=== PATIENT | female | born 1980 | race African-American/Black ===

== ENCOUNTER 2017-12-29 20:00 | Emergency (ER) | payer SELFPAY ==
--- NOTE | 2017-12-29 20:50 | RAD REPORT ---
EXAM DESCRIPTION: CT - Head Brain Wo Cont - 12/29/2017 8:35 pm CLINICAL HISTORY: Headache COMPARISON: None. TECHNIQUE: Axial 5 mm thick images of the head were obtained without IV contrast. All CT scans are performed using dose optimization technique as appropriate and may include automated exposure control or mA/KV adjustment according to patient size. FINDINGS: No intracranial hemorrhage, mass, edema or shift of mid-line structures. No acute infarcti on changes seen. No abnormal extra-axial fluid collections. Ventricles are normal. Mastoid air cells and visualized portions of the paranasal sinuses are clear. No acute bony findings. IMPRESSION: Negative non-contrast CT head examination.
[2017-12-29 21:02] LABS: Absolute Lymphocytes (CBC) 1.9 K/uL (0.7-4.9); Absolute Monocytes 0.5 K/uL (0.1-1.3); Absolute Neutrophil 2.7 K/uL (1.8-8.0); Basophils % 1.5 % (0-1.3); Eosinophils % 1.2 % (0-4.4); Hematocrit 30.7 % (36.0-45.0); MCH 22.5 pg (27.0-35.0); MCV 72.5 fL (80-100); MPV 7.7 fL (7.6-11.3); Monocytes % 9.9 % (3.3-12.3); RBC Red Blood Cell Count 4.24 M/uL (3.86-4.86)
[2017-12-29] MEDS ORDERED: METOCLOPRAMIDE 10 MG/2mL INJ ONE (21:02)
[2017-12-29] MEDS ORDERED: NA CHLORIDE 0.9% 1,000 ML ONE (21:03)
[2017-12-29] MEDS ORDERED: KETOROLAC 30 MG/ML INJ ONE (21:03)
[2017-12-29] MEDS ORDERED: DIPHENHYDRAMINE 50 MG/ML VIAL ONE (21:03)
[2017-12-29 21:13] LABS: ALT/SGPT 15 U/L (12-78); AST/SGOT 15 U/L (15-37); Albumin 3.7 g/dL (3.4-5.0); Alkaline Phosphatase 59 U/L (45-117); BUN Blood Urea Nitrogen 11 mg/dL (7-18); Bicarbonate 26 mmol/L (21-32); Bilirubin Total 0.3 mg/dL (0.2-1.0); Glucose Level 100 mg/dL (74-106); Potassium 3.7 mmol/L (3.5-5.1); Sodium Level 142 mmol/L (136-145); Troponin I < 0.02 ng/mL (0.0-0.045)
[2017-12-29 21:31] LABS: Urine Blood NEGATIVE (NEG); Urine Glucose NEGATIVE (NEG); Urine Protein NEGATIVE (NEG); Urine Specific Gravity 1.015 (1.005-1.030)
--- NOTE | 2017-12-29 21:51 | RAD REPORT ---
EXAM DESCRIPTION: RAD - Chest Single View - 12/29/2017 9:00 pm CLINICAL HISTORY: Chest pain COMPARISON: October 2011 TECHNIQUE: AP portable chest image was obtained 1 hours . FINDINGS: Lungs are clear. Heart and vasculature are normal. No measurable pleural effusion and no p neumothorax. No acute bony abnormality seen. No acute aortic findings suspected. IMPRESSION: No acute cardiopulmonary process. No significant interval change.
--- NOTE | 2017-12-29 22:10 | ER ---
Nurse's Notes [facility] Name: Varinder Douglas Age: 37 yrs Sex: Female : 1980 Arrival Date: 12/29/2017 Time: 20:01 Bed 30 Private MD: Diagnosis: Migraine without aura Presentation: 12/29 20:13 Presenting complaint: Patient states: "I STARTED HAVING HEADACHE AND CHEST PAIN AT rv ABOUT 4PM.". Transition of care: patient was not received from another setting of care. Onset of symptoms was December 29, 2017 at 16:00. Risk Assessment: Do you want to hurt yourself or someone else? Patient reports no desire to harm self or others. Initial Sepsis Screen: Does the patient meet any 2 criteria? No. Patient's initial sepsis screen is negative. Does the patient have a suspected source of infection? No. Patient's initial sepsis screen is negative. Care prior to arrival: None. 20:13 Method Of Arrival: Ambulatory rv 20:13 Acuity: AMAURY 3 rv Triage Assessment: 20:16 General: Appears in no apparent distress. uncomfortable, Behavior is calm, cooperative. rv Pain: Complains of pain in HEAD, CHEST. Cardiovascular: Capillary refill < 3 seconds. 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 - Social history:: Smoking status: Patient/guardian denies using tobacco, never smoked, Patient uses Patient/guardian denies using alcohol, street drugs, The patient lives with family. - Ebola Screening: : Patient negative for fever greater than or equal to 101.5 degrees Fahrenheit, and additional compatible Ebola Virus Disease symptoms Patient denies exposure to infectious person Patient denies travel to an Ebola-affected area in the 21 days before illness onset. - Family history:: not pertinent. Screenin:19 Abuse screen: Denies threats or abuse. Denies injuries from another. Nutritional rv screening: No deficits noted. Tuberculosis screening: No symptoms or risk factors identified. Fall Risk None identified. Assessment: 20:18 General: Appears in no apparent distress. uncomfortable, Behavior is calm, cooperative. rv Pain: Pain does not radiate. Pain began 4 hours ago. Neuro: Level of Consciousness is awake, alert, obeys commands, Oriented to person, place, time, situation. Cardiovascular: Capillary refill < 3 seconds. Respiratory: Airway is patent. GI: No signs and/or symptoms were reported involving the gastrointestinal system. : No signs and/or symptoms were reported regarding the genitourinary system. EENT: No signs and/or symptoms were reported regarding the EENT system. Derm: Skin is intact. Musculoskeletal: No signs and/or symptoms reported regarding the musculoskeletal system. 21:24 Reassessment: Patient appears in no apparent distress at this time. rv Vital Signs: 20:17 BP 139 / 91; Pulse 93; Resp 17; Temp 97.9; Pulse Ox 100% ; Weight 92.99 kg (R); rv 21:24 BP 140 / 97; Pulse 79; Resp 18; Pulse Ox 100% on R/A; rv 22:35 BP 128 / 80; Pulse 87; Resp 17; Pulse Ox 100% on R/A; rv ED Course: 20:01 Patient arrived in ED. am2 20:07 Peña Santoyo MD is Attending Physician. ma2 20:15 Triage completed. rv 20:19 Arm band placed on right wrist. rv 20:19 Patient has correct armband on for positive identification. Bed in low position. Call rv light in reach. Side rails up X 1. Adult w/ patient. Pulse ox on. NIBP on. 20:20 Patient maintains SpO2 saturation greater than 95% on room air. rv 20:35 CT Head Brain wo Cont In Process Unspecified. EDMS 20:45 Inserted saline lock: 20 gauge in right antecubital area, using aseptic technique. rv Blood collected. 20:45 Initial lab(s) drawn, by me, sent to lab. rv 20:59 X-ray completed. Portable x-ray completed in exam room. Patient tolerated procedure kp1 well. 21:01 Chest Single View XRAY In Process Unspecified. EDMS 22:35 No provider procedures requiring assistance completed. IV discontinued, bleeding rv controlled, No redness/swelling at site. Pressure dressing applied. Administered Medications: 21:00 Drug: NS 0.9% 1000 ml Route: IV; Rate: 1 bolus; Site: right antecubital; rv 22:34 Follow up: IV Status: Completed infusion rv 21:00 Drug: Reglan 10 mg Route: IVP; Site: right antecubital; rv 22:34 Follow up: Response: Pain is decreased rv 21:00 Drug: Benadryl 50 mg Route: IVP; Site: right antecubital; rv 22:34 Follow up: Response: Pain is decreased rv 21:00 Drug: TORadol 30 mg Route: IVP; Site: right antecubital; rv 22:34 Follow up: Response: No adverse reaction; Pain is decreased rv Outcome: 22:09 Discharge ordered by MD. knight 22:35 Discharged to home ambulatory. rv 22:35 Condition: improved 22:35 Discharge instructions given to patient, Instructed on discharge instructions, follow up and referral plans. medication usage, Demonstrated understanding of instructions, follow-up care, medications, Prescriptions given X 1. 22:35 Patient left the ED. rv Signatures: Dispatcher [employer] EDMS Kia Rodriguez am2 Yas Correa kp1 Peña Santoyo MD MD ma2 Vicente, Ronaldo RN RN rv
--- NOTE | 2017-12-29 22:10 | EDPHYS ---
Physician Documentation [facility] Name: Varinder Douglas Age: 37 yrs Sex: Female : 1980 Arrival Date: 12/29/2017 Time: 20:01 Bed 30 Private MD: ED Physician Peña Santoyo HPI: 12/29 20:59 This 37 yrs old Black Female presents to ER via Ambulatory with complaints of Chest ma2 Pain, Headache. 20:59 The patient or guardian reports chest pain that is located primarily in the epigastric ma2 area. The pain does not radiate. Associated signs and symptoms: Pertinent positives: HEADACHE GRADUAL UNCHANGED . The chest pain is described as burning. Duration: The patient or guardian reports a single episode. Severity of pain: At its worst the pain was mild in the emergency department the pain is unchanged. The patient has experienced similar episodes in the past. 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 - Social history:: Smoking status: Patient/guardian denies using tobacco, never smoked, Patient uses Patient/guardian denies using alcohol, street drugs, The patient lives with family. - Ebola Screening: : Patient negative for fever greater than or equal to 101.5 degrees Fahrenheit, and additional compatible Ebola Virus Disease symptoms Patient denies exposure to infectious person Patient denies travel to an Ebola-affected area in the 21 days before illness onset. - Family history:: not pertinent. ROS: 20:59 Constitutional: Negative for fever, chills, and weight loss, Cardiovascular: Negative ma2 for chest pain, palpitations, and edema, Respiratory: Negative for shortness of breath, cough, wheezing, and pleuritic chest pain, Abdomen/GI: Negative for abdominal pain, nausea, diarrhea, and constipation, MS/Extremity: Negative for injury and deformity, Skin: Negative for injury, rash, and discoloration. 20:59 Neuro: Positive for headache, Negative for altered mental status, dizziness, seizure activity, speech changes, tremor, visual changes. 20:59 All other systems are negative. Exam: 20:59 Constitutional: This is a well developed, well nourished patient who is awake, alert, ma2 and in no acute distress. Chest/axilla: Normal chest wall appearance and motion. Nontender with no deformity. No lesions are appreciated. Cardiovascular: Regular rate and rhythm with a normal S1 and S2. No gallops, murmurs, or rubs. Normal PMI, no JVD. No pulse deficits. Respiratory: Lungs have equal breath sounds bilaterally, clear to auscultation and percussion. No rales, rhonchi or wheezes noted. No increased work of breathing, no retractions or nasal flaring. Abdomen/GI: Soft, non-tender, with normal bowel sounds. No distension or tympany. No guarding or rebound. No evidence of tenderness throughout. MS/ Extremity: Pulses equal, no cyanosis. Neurovascular intact. Full, normal range of motion. Neuro: Awake and alert, GCS 15, oriented to person, place, time, and situation. Cranial nerves II-XII grossly intact. Motor strength 5/5 in all extremities. Sensory grossly intact. Cerebellar exam normal. Normal gait. Psych: Awake, alert, with orientation to person, place and time. Behavior, mood, and affect are within normal limits. Vital Signs: 20:17 BP 139 / 91; Pulse 93; Resp 17; Temp 97.9; Pulse Ox 100% ; Weight 92.99 kg (R); rv 21:24 BP 140 / 97; Pulse 79; Resp 18; Pulse Ox 100% on R/A; rv 22:35 BP 128 / 80; Pulse 87; Resp 17; Pulse Ox 100% on R/A; rv MDM: 20:07 Patient medically screened. ma2 20:59 Differential diagnosis: chest wall pain, costochondritis, HEADACHE MIGRAINE VS TENSION. ma2 HEART Score: History:. The patient's pulmonary embolism risk score was calculated as follows: Total Score: 0-2 points. This patient was found to be at low risk for a pulmonary embolism by using the Well's assessment criteria. NICKI Risk Score: TOTAL SCORE = 0. 21:59 Data reviewed: vital signs, nurses notes, EMS record. Counseling: I had a detailed [facility] discussion with the patient and/or guardian regarding: the historical points, exam findings, and any diagnostic results supporting the discharge/admit diagnosis, the presence of at least one elevated blood pressure reading (>120/80) during this emergency department visit, the need for outpatient follow up. Response to treatment: the patient's symptoms have markedly improved after treatment. 12/29 20:24 Order name: CBC with Diff; Complete Time: 21:14 ma2 12/29 20:24 Order name: CMP; Complete Time: 21:14 ma2 12/29 20:24 Order name: CT Head Brain wo Cont; Complete Time: 21:14 ma2 12/29 20:24 Order name: Troponin I; Complete Time: 21:14 ma2 12/29 20:24 Order name: Test, Serum; Complete Time: 21:56 ma2 12/29 21:26 Order name: Urine Dipstick--Ancillary (enter results); Complete Time: 21:56 ar5 12/29 20:24 Order name: Chest Single View XRAY; Complete Time: 21:56 ma2 12/29 20:24 Order name: Urine Dipstick-Ancillary (obtain specimen); Complete Time: 21:23 ma2 Administered Medications: 21:00 Drug: NS 0.9% 1000 ml Route: IV; Rate: 1 bolus; Site: right antecubital; rv 22:34 Follow up: IV Status: Completed infusion rv 21:00 Drug: Reglan 10 mg Route: IVP; Site: right antecubital; rv 22:34 Follow up: Response: Pain is decreased rv 21:00 Drug: Benadryl 50 mg Route: IVP; Site: right antecubital; rv 22:34 Follow up: Response: Pain is decreased rv 21:00 Drug: TORadol 30 mg Route: IVP; Site: right antecubital; rv 22:34 Follow up: Response: No adverse reaction; Pain is decreased rv Disposition: 12/29/17 22:09 Discharged to Home. Impression: Migraine without aura. - Condition is Stable. - Discharge Instructions: Migraine Headache. - Prescriptions for Reglan 10 mg Oral Tablet - take 1 tablet by ORAL route every 6 hours take 30 minutes before meals and at bedtime; 20 tablet. - Medication Reconciliation Form, Thank You Letter, Antibiotic Education, Prescription Opioid Use form. - Follow up: Private Physician; When: Tomorrow; Reason: Continuance of care. Signatures: Dispatcher [employer] EDPeña Mar MD MD ma2 Boyd Maldonado, RN RN rv Corrections: (The following items were deleted from the chart) 22:35 22:09 12/29/2017 22:09 Discharged to Home. Impression: Migraine without aura. Condition rv is Stable. Forms are Medication Reconciliation Form, Thank You Letter, Antibiotic Education, Prescription Opioid Use. Follow up: Private Physician; When: Tomorrow; Reason: Continuance of care. ma2
[2017-12-29 22:44] VITALS: TEMP 97.9; O2SAT 100
[2017-12-29 22:46] VITALS: BP 128/80
== END 2017-12-29 22:35 | disposition home or self-care (01) ==
LOC: ER 20:00
DX: G43.009 Migraine without aura, not intractable, without status migrainosus (principal)
CPT/HCPCS: 36415; 70450; 71045; 80053; 81003; 84484; 84703; 85025; 96361; 96374; 96375; 99284; J2765; J7030

== ENCOUNTER 2018-07-19 14:45 | Emergency (ER) | payer SELFPAY ==
[2018-07-19 15:38] LABS: Urine Blood 2+ (NEG); Urine Glucose NEGATIVE (NEG); Urine Protein NEGATIVE (NEG); Urine Specific Gravity <1.005 (1.005-1.030)
[2018-07-19] MEDS ORDERED: PROMETHAZINE 25 MG TABLET ONE (15:48)
[2018-07-19] MEDS ORDERED: NA CHLORIDE 0.9% 1,000 ML ONE (15:48)
[2018-07-19 16:03] LABS: Urine Bacteria <20 /HPF (<20); Urine Culture Reflex Order NOT NEEDED; Urine RBC NONE SEEN /HPF (NONE SEEN)
[2018-07-19 16:08] LABS: Absolute Lymphocytes (CBC) 1.3 K/uL (0.7-4.9); Absolute Monocytes 0.5 K/uL (0.1-1.3); Absolute Neutrophil 2.8 K/uL (1.8-8.0); Basophils % 1.1 % (0-1.3); Hematocrit 29.5 % (36.0-45.0); Lymphocytes % 27.9 % (15.3-44.8); MPV 7.9 fL (7.6-11.3); Monocytes % 9.7 % (3.3-12.3); RBC Red Blood Cell Count 4.14 M/uL (3.86-4.86)
[2018-07-19 16:14] LABS: ALT/SGPT 14 U/L (12-78); AST/SGOT 12 U/L (15-37); Albumin 3.8 g/dL (3.4-5.0); Alkaline Phosphatase 52 U/L (45-117); BUN Blood Urea Nitrogen 12 mg/dL (7-18); Bicarbonate 25 mmol/L (21-32); Bilirubin Direct < 0.1 mg/dL (0-0.2); Bilirubin Total 0.5 mg/dL (0.2-1.0); Glucose Level 85 mg/dL (74-106); Lipase 104 U/L (73-393); Potassium 3.6 mmol/L (3.5-5.1); Protein, Total 8.3 g/dL (6.4-8.2); Sodium Level 141 mmol/L (136-145)
[2018-07-19] MEDS ORDERED: FOLIC ACID 5 MG/ML VIAL ONE (16:47)
[2018-07-19] MEDS ORDERED: FERROUS GLUCONATE 324 MG TAB PO ONE (17:00)
--- NOTE | 2018-07-19 17:14 | ER ---
Nurse's Notes [facility] Name: Varinder Douglas Age: 38 yrs Sex: Female : 1980 Arrival Date: 07/19/2018 Time: 14:46 Bed 17 Private MD: Tom Gannon R Diagnosis: Iron deficiency anemia;Syncope and collapse;Nausea Presentation: 07/19 15:00 Presenting complaint: Patient states: headache to whole head that began last night. Pt aa5 states "this morning when I got into the shower I just started sweating and felt like I was going to pass out". Pt denies nausea/vomiting. Transition of care: patient was not received from another setting of care. Onset of symptoms was July 2018. Risk Assessment: Do you want to hurt yourself or someone else? Patient reports no desire to harm self or others. Initial Sepsis Screen: Does the patient meet any 2 criteria? No. Patient's initial sepsis screen is negative. Does the patient have a suspected source of infection? No. Patient's initial sepsis screen is negative. Care prior to arrival: None. 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 - Social history:: Smoking status: Patient/guardian denies using tobacco. - Ebola Screening: : No symptoms or risks identified at this time. Screenin:23 Abuse screen: Denies threats or abuse. Nutritional screening: No deficits noted. em Tuberculosis screening: No symptoms or risk factors identified. Fall Risk None identified. Assessment: 15:30 General: Appears in no apparent distress. comfortable, Behavior is calm, cooperative, em Denies fever. Pain: Complains of pain in left zoroastrian and right zoroastrian and forehead Pain currently is 8 out of 10 on a pain scale. Neuro: Level of Consciousness is awake, alert, obeys commands, Oriented to person, place, time, situation, Reports headache Denies blurred vision dizziness. Cardiovascular: Capillary refill < 3 seconds Patient's skin is warm and dry. Respiratory: Airway is patent Respiratory effort is even, unlabored, Respiratory pattern is regular, symmetrical. GI: Patient currently denies nausea, vomiting. Derm: Skin is intact, is healthy with good turgor, Skin is pink, warm \\T\\ dry. Musculoskeletal: Capillary refill < 3 seconds, Range of motion: intact in all extremities. 15:35 Reassessment: I agree with the assessment made by João GARCIA. sg 17:28 Reassessment: Patient appears in no apparent distress at this time. Patient and/or em family updated on plan of care and expected duration. Pain level reassessed. Patient is alert, oriented x 3, equal unlabored respirations, skin warm/dry/pink. Patient states feeling better. Patient states symptoms have improved. Vital Signs: 15:01 BP 129 / 88; Pulse 83; Resp 18 S; Temp 98.6(TE); Pulse Ox 100% on R/A; Weight 92.99 kg aa5 (R); Height 5 ft. 6 in. (167.64 cm) (R); Pain 8/10; 15:53 BP 127 / 89; Pulse 74; Resp 16; Temp 98.1(TE); Pulse Ox 100% ; mh5 17:28 BP 125 / 88; Pulse 76; Resp 18; Pulse Ox 98% on R/A; em 15:01 Body Mass Index 33.09 (92.99 kg, 167.64 cm) aa5 ED Course: 14:46 Patient arrived in ED. ag5 14:46 Tom Gannon MD is Private Physician. ag5 15:00 Arm band placed on. aa5 15:01 Triage completed. aa5 15:06 Analilia [facility]el [facility]C [facility]. snw 15:06 Will Lawrence MD is Attending Physician. snw 15:22 João Khoury LVN is Primary Nurse. em 15:23 Patient has correct armband on for positive identification. Bed in low position. Call em light in reach. Pulse ox on. NIBP on. 15:45 Initial lab(s) drawn, by me, sent to lab. Inserted saline lock: 22 gauge in right em antecubital area, using aseptic technique. Blood collected. 17:13 Tom Gannon MD is Referral Physician. snw 17:29 No provider procedures requiring assistance completed. IV discontinued, intact, em bleeding controlled, No redness/swelling at site. Pressure dressing applied. Administered Medications: 15:49 Drug: NS 0.9% 1000 ml Route: IV; Rate: 1 bolus; Site: right antecubital; em 17:28 Follow up: IV Status: Completed infusion; IV Intake: 1000ml em 15:49 Drug: Phenergan 25 mg Route: PO; em 16:37 Follow up: Response: No adverse reaction; Marked relief of symptoms em 16:37 Drug: foLIC Acid 1 mg Route: IVPB; Site: right antecubital; sg 17:21 Follow up: Response: No adverse reaction; IV Status: Completed infusion em 17:21 Drug: Ferrous Gluconate 324 mg Route: PO; em 17:32 Follow up: Response: Medication administered at discharge. em Intake: 17:28 IV: 1000ml; Total: 1000ml. em Outcome: 17:13 Discharge ordered by MD. snw 17:29 Discharged to home ambulatory, with family. em 17:29 Condition: good 17:29 Discharge instructions given to patient, family, Instructed on discharge instructions, follow up and referral plans. medication usage, Demonstrated understanding of instructions, follow-up care, medications, Prescriptions given X 2. 17:30 Patient left the ED. em Signatures: Connor Hanks, RN RN Analilia Medel, ADMINISTRATIVE NURSING SUPERVISOR-C ADMINISTRATIVE NURSING SUPERVISOR-Csnw João Khoury, UI UX DEVELOPER UI UX DEVELOPER em Neva Horta RN RN aa5 Martinez, Maria 5 Dale, Joaquin 5
--- NOTE | 2018-07-19 17:14 | EDPHYS ---
Physician Documentation [facility] Name: Varinder Douglas Age: 38 yrs Sex: Female : 1980 Arrival Date: 07/19/2018 Time: 14:46 Bed 17 Private MD: Tom Gannon R ED Physician Will Lawrence HPI: 07/19 15:47 This 38 yrs old Black Female presents to ER via Ambulatory with complaints of Headache. snw 15:47 The patient complains of pain to the forehead, right protestant and left protestant. The snw patient describes the headache as a pressure. Onset: The symptoms/episode began/occurred gradually, last night, and became persistent. Associated signs and symptoms: Pertinent positives: nausea. Severity of symptoms: in the emergency department the pain is unchanged. The symptoms are alleviated by nothing. The patient has not experienced similar symptoms in the past. The patient has not recently seen a physician. pt describes nausea and near syncope while in shower this am, pt states spouse is now feeling similarly. 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 - Social history:: Smoking status: Patient/guardian denies using tobacco. - Ebola Screening: : No symptoms or risks identified at this time. ROS: 15:46 Constitutional: Negative for fever, chills, and weight loss, Eyes: Negative for injury, snw pain, redness, and discharge, ENT: Negative for injury, pain, and discharge, Neck: Negative for injury, pain, and swelling, Cardiovascular: Negative for chest pain, palpitations, and edema, Respiratory: Negative for shortness of breath, cough, wheezing, and pleuritic chest pain. 15:46 Back: Negative for injury and pain, : Negative for injury, bleeding, discharge, and swelling, MS/Extremity: Negative for injury and deformity, Skin: Negative for injury, rash, and discoloration. 15:46 Abdomen/GI: Positive for nausea. 15:46 Neuro: Positive for headache, of the forehead, right protestant and left protestant. Exam: 15:46 Constitutional: This is a well developed, well nourished patient who is awake, alert, snw and in no acute distress. Head/Face: Normocephalic, atraumatic. Eyes: Pupils equal round and reactive to light, extra-ocular motions intact. Lids and lashes normal. Conjunctiva and sclera are non-icteric and not injected. Cornea within normal limits. Periorbital areas with no swelling, redness, or edema. ENT: Nares patent. No nasal discharge, no septal abnormalities noted. Tympanic membranes are normal and external auditory canals are clear. Oropharynx with no redness, swelling, or masses, exudates, or evidence of obstruction, uvula midline. Mucous membranes moist. Neck: Trachea midline, no thyromegaly or masses palpated, and no cervical lymphadenopathy. Supple, full range of motion without nuchal rigidity, or vertebral point tenderness. No Meningismus. Chest/axilla: Normal chest wall appearance and motion. Nontender with no deformity. No lesions are appreciated. Cardiovascular: Regular rate and rhythm with a normal S1 and S2. No gallops, murmurs, or rubs. Normal PMI, no JVD. No pulse deficits. Respiratory: Lungs have equal breath sounds bilaterally, clear to auscultation and percussion. No rales, rhonchi or wheezes noted. No increased work of breathing, no retractions or nasal flaring. Abdomen/GI: Soft, non-tender, with normal bowel sounds. No distension or tympany. No guarding or rebound. No evidence of tenderness throughout. Back: No spinal tenderness. No costovertebral tenderness. Full range of motion. Skin: Warm, dry with normal turgor. Normal color with no rashes, no lesions, and no evidence of cellulitis. MS/ Extremity: Pulses equal, no cyanosis. Neurovascular intact. Full, normal range of motion. Neuro: Awake and alert, GCS 15, oriented to person, place, time, and situation. Cranial nerves II-XII grossly intact. Motor strength 5/5 in all extremities. Sensory grossly intact. Cerebellar exam normal. Normal gait. Psych: Awake, alert, with orientation to person, place and time. Behavior, mood, and affect are within normal limits. Vital Signs: 15:01 BP 129 / 88; Pulse 83; Resp 18 S; Temp 98.6(TE); Pulse Ox 100% on R/A; Weight 92.99 kg aa5 (R); Height 5 ft. 6 in. (167.64 cm) (R); Pain 8/10; 15:53 BP 127 / 89; Pulse 74; Resp 16; Temp 98.1(TE); Pulse Ox 100% ; mh5 17:28 BP 125 / 88; Pulse 76; Resp 18; Pulse Ox 98% on R/A; em 15:01 Body Mass Index 33.09 (92.99 kg, 167.64 cm) aa5 MDM: 15:06 Patient medically screened. snw 19:45 Data reviewed: vital signs, nurses notes. Data interpreted: Pulse oximetry: on room air snw is 98 %. Interpretation: normal. Counseling: I had a detailed discussion with the patient and/or guardian regarding: the historical points, exam findings, and any diagnostic results supporting the discharge/admit diagnosis, lab results, the need for outpatient follow up, for definitive care, to return to the emergency department if symptoms worsen or persist or if there are any questions or concerns that arise at home. Special discussion: Based on the patient's Hx, exam, and Dx evaluation, there is no indication for emergent surgery or inpatient Tx. It is understood by the patient/guardian that if the Sx's persist or worsen they need to return immediately for re-evaluation. Based on the history and exam findings, there is no indication for further emergent testing or inpatient evaluation. I discussed with the patient/guardian the need to see the primary care provider for further evaluation of the symptoms. 07/19 15:25 Order name: Basic Metabolic Panel; Complete Time: 16:22 snw 07/19 15:25 Order name: CBC with Diff snw 07/19 15:25 Order name: Hepatic Function; Complete Time: 16:22 snw 07/19 15:25 Order name: Lipase; Complete Time: 16:22 snw 07/19 15:25 Order name: Urine Microscopic Only; Complete Time: 16:11 snw 07/19 15:26 Order name: Test, Serum; Complete Time: 16:22 ms 07/19 15:25 Order name: Labs collected and sent; Complete Time: 15:54 snw 07/19 15:27 Order name: Urine Dipstick--Ancillary (enter results); Complete Time: 15:39 ms 07/19 16:12 Order name: CBC Smear Scan EDMS Administered Medications: 15:49 Drug: NS 0.9% 1000 ml Route: IV; Rate: 1 bolus; Site: right antecubital; em 17:28 Follow up: IV Status: Completed infusion; IV Intake: 1000ml em 15:49 Drug: Phenergan 25 mg Route: PO; em 16:37 Follow up: Response: No adverse reaction; Marked relief of symptoms em 16:37 Drug: foLIC Acid 1 mg Route: IVPB; Site: right antecubital; sg 17:21 Follow up: Response: No adverse reaction; IV Status: Completed infusion em 17:21 Drug: Ferrous Gluconate 324 mg Route: PO; em 17:32 Follow up: Response: Medication administered at discharge. em Disposition: 18:09 Co-signature as Attending Physician, Will Lawrence MD I agree with the assessment and kdr plan of care. Disposition: 07/19/18 17:13 Discharged to Home. Impression: Iron deficiency anemia, Syncope and collapse, Nausea. - Condition is Stable. - Discharge Instructions: Iron Deficiency Anemia, Adult, Iron-Rich Diet, Hypertension, Nausea, Adult, Syncope. - Prescriptions for Vitamin 27- 0.8 mg Oral Tablet - take 1 tablet by ORAL route once daily; 60 tablet. Zofran 4 mg Oral Tablet - take 1 tablet by ORAL route every 12 hours As needed; 20 tablet. - Medication Reconciliation Form, Thank You Letter, Antibiotic Education, Prescription Opioid Use form. - Follow up: Tom Gannon MD; When: 2 - 3 days; Reason: Recheck today's complaints, Continuance of care, Re-evaluation by your physician. Follow up: Emergency Department; When: As needed; Reason: Worsening of condition. Signatures: Dispatcher [employer] EDMS Connor Hanks RN RN sg Rittger, Kevin, MD MD kdr Therrien, Shelly, JAIME-C WASHTUB WORKER HELPER-Kennethw João Khoury, CERTIFIED VETERINARY TECHNICIAN CERTIFIED VETERINARY TECHNICIAN em Neva Horta, RN RN aa5 Corrections: (The following items were deleted from the chart) 15:27 15:25 Urine Dipstick-Ancillary ordered. snw em 15:28 15:25 Urine Test ordered. snw em 17:30 17:13 07/19/2018 17:13 Discharged to Home. Impression: Iron deficiency anemia; Syncope em and collapse; Nausea. Condition is Stable. Forms are Medication Reconciliation Form, Thank You Letter, Antibiotic Education, Prescription Opioid Use. Follow up: Tom Gannon; When: 2 - 3 days; Reason: Recheck today's complaints, Continuance of care, Re-evaluation by your physician. Follow up: Emergency Department; When: As needed; Reason: Worsening of condition. sergio
[2018-07-19 17:40] LABS: Urine White Blood Cell Casts OK
[2018-07-19 17:41] LABS: Anisocytosis 2+; Blood Morphology Comment NOTED (NOT SEEN); Hypochromasia 1+; Ovalocytes 1+; Platelet Estimate ADEQ
[2018-07-19 17:43] VITALS: TEMP 98.1
[2018-07-19 17:45] VITALS: BP 125/88; O2SAT 98
== END 2018-07-19 17:30 | disposition home or self-care (01) ==
LOC: ER 14:45
DX: D50.9 Iron deficiency anemia, unspecified (principal); R11.0 Nausea; Z88.5 Allergy status to narcotic agent
CPT/HCPCS: 36415; 80048; 80076; 81003; 81015; 83690; 84703; 85025; 96361; 96365; 99284; J7030

== ENCOUNTER 2018-08-05 11:13 | Emergency (ER) | payer SELFPAY ==
[2018-08-05] MEDS ORDERED: ASPIRIN 81 MG CHEWABLE TABLET ONE (12:33)
[2018-08-05 12:34] LABS: Absolute Lymphocytes (CBC) 1.2 K/uL (0.7-4.9); Basophils % 1.9 % (0-1.3); Eosinophils % 1.7 % (0-4.4); Hematocrit 30.4 % (36.0-45.0); Lymphocytes % 34.1 % (15.3-44.8); MPV 7.7 fL (7.6-11.3); Monocytes % 13.7 % (3.3-12.3); RBC Red Blood Cell Count 4.24 M/uL (3.86-4.86)
[2018-08-05 12:36] LABS: Protime INR 1.03
[2018-08-05 12:52] LABS: ALT/SGPT 14 U/L (12-78); AST/SGOT 13 U/L (15-37); Albumin 3.6 g/dL (3.4-5.0); Alkaline Phosphatase 47 U/L (45-117); BUN Blood Urea Nitrogen 11 mg/dL (7-18); Bicarbonate 28 mmol/L (21-32); Bilirubin Direct 0.2 mg/dL (0-0.2); Bilirubin Total 0.5 mg/dL (0.2-1.0); Glucose Level 87 mg/dL (74-106); NT PRO-BNP 7 pg/mL (<125); Potassium 3.9 mmol/L (3.5-5.1); Protein, Total 7.9 g/dL (6.4-8.2); Sodium Level 141 mmol/L (136-145); Troponin (Emerg Dept Use Only) < 0.02 ng/mL (0.0-0.045)
--- NOTE | 2018-08-05 12:53 | RAD REPORT ---
EXAM DESCRIPTION: Nela Single View08/05/2018 12:46 pm CLINICAL HISTORY: Chest pain COMPARISON: March 2018 FINDINGS: The lungs appear clear of acute infiltrate. The heart is normal size IMPRESSION: No acute abnormalities displayed
--- NOTE | 2018-08-05 13:04 | ER ---
Nurse's Notes [facility] Name: Varinder Douglas Age: 38 yrs Sex: Female : 1980 Arrival Date: 08/05/2018 Time: 11:15 Bed 27 Private MD: Tom Gannon R Diagnosis: Chest pain, unspecified Presentation: 08/05 11:17 Presenting complaint: Patient states: i was awaken by a chest pain, L upper area, like hj a sharp pain, pain i 7/10; denies N/V; radiates to L lower back area; denies SOB;. Transition of care: patient was not received from another setting of care. Onset of symptoms was August 05, 2018. Risk Assessment: Do you want to hurt yourself or someone else? Patient reports no desire to harm self or others. Initial Sepsis Screen: Does the patient meet any 2 criteria? No. Patient's initial sepsis screen is negative. Does the patient have a suspected source of infection? No. Patient's initial sepsis screen is negative. Care prior to arrival: None. 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 - Ebola Screening: : Patient denies travel to an Ebola-affected area in the 21 days before illness onset. - Social history:: Smoking status: unknown. Screenin:09 Abuse screen: Denies threats or abuse. Denies injuries from another. Nutritional aj1 screening: No deficits noted. Tuberculosis screening: No symptoms or risk factors identified. 13:00 Fall Risk IV access (20 points). mg2 Assessment: 12:09 General: Appears in no apparent distress. comfortable, Behavior is calm, cooperative, aj1 appropriate for age. Pain: Complains of pain in anterior aspect of right upper chest Pain radiates to back Pain currently is 7 out of 10 on a pain scale. Quality of pain is described as sharp, Pain began 8 hours ago. Neuro: Level of Consciousness is awake, alert, obeys commands, Oriented to person, place, time, situation. Cardiovascular: Reports chest pain, Heart tones S1 S2 present Patient's skin is warm and dry. Rhythm is sinus rhythm. Respiratory: Airway is patent Respiratory effort is even, unlabored, Respiratory pattern is regular, symmetrical, Denies shortness of breath. GI: No signs and/or symptoms were reported involving the gastrointestinal system. : No signs and/or symptoms were reported regarding the genitourinary system. EENT: No signs and/or symptoms were reported regarding the EENT system. Derm: No signs and/or symptoms reported regarding the dermatologic system. Skin is pink, warm \T\ dry. normal. Musculoskeletal: No signs and/or symptoms reported regarding the musculoskeletal system. Circulation, motion, and sensation intact. 13:09 Reassessment: Patient appears in no apparent distress at this time. No changes from aj1 previously documented assessment. Patient and/or family updated on plan of care and expected duration. Pain level reassessed. Patient is alert, oriented x 3, equal unlabored respirations, skin warm/dry/pink. 13:46 Reassessment: Patient denies pain at this time. Patient states feeling better. Patient mg2 states symptoms have improved. Vital Signs: 11:19 BP 122 / 82; Pulse 89; Resp 18; Temp 98.0(O); Pulse Ox 100% on R/A; Weight 92.99 kg; hj Height 5 ft. 6 in. (167.64 cm); Pain 7/10; 12:28 BP 108 / 79; Pulse 75; Resp 18; Pulse Ox 100% on R/A; aj1 13:10 BP 105 / 79; Pulse 80; Resp 18; Pulse Ox 100% on R/A; aj1 13:46 BP 116 / 84; Pulse 81; Resp 18; Temp 98; Pulse Ox 100% on R/A; Pain 0/10; mg2 11:19 Body Mass Index 33.09 (92.99 kg, 167.64 cm) ED Course: 11:15 Patient arrived in ED. mr 11:16 Tom Gannon MD is Private Physician. mr 11:17 EKG done, by desktop support technician. reviewed by Roque Armendariz MD. at1 11:18 Triage completed. hj 11:19 Arm band placed on right wrist. hj 12:01 Nery Doyle RN is Primary Nurse. aj1 12:07 Allen Roca PA is PHCP. jr8 12:07 David Quintana MD is Attending Physician. jr8 12:09 Patient has correct armband on for positive identification. ekg monitor tech on. Pulse aj1 ox on. NIBP on. 12:09 No provider procedures requiring assistance completed. Patient maintains SpO2 aj1 saturation greater than 95% on room air. 12:27 Inserted saline lock: 20 gauge in right antecubital area, using aseptic technique. aj1 Blood collected. 12:43 X-ray completed. Portable x-ray completed in exam room. Patient tolerated procedure jb2 well. 12:47 XRAY Chest (1 view) In Process Unspecified. EDMS 13:04 Tom Gannon MD is Referral Physician. jr8 13:46 IV discontinued, intact, bleeding controlled, No redness/swelling at site. Pressure mg2 dressing applied. Administered Medications: 12:15 Drug: Aspirin Chewable Tablet 324 mg Route: PO; aj1 13:10 Follow up: Response: No adverse reaction aj1 Outcome: 13:04 Discharge ordered by . jr8 13:46 Discharged to home ambulatory. mg2 13:46 Condition: stable 13:46 Discharge instructions given to patient, Instructed on discharge instructions, follow up and referral plans. Demonstrated understanding of instructions, follow-up care. 13:47 Patient left the ED. mg2 Signatures: Dispatcher [employer] EDPA Nery Doyle, JEREMIAH RN aj1 Linh Armando Jesse jb2 Allen Roca PA PA jr8 Kia Hwang, production stage manager EKG Tat1 Percy Pena RN RN hj Gardose, Michele, RN RN mg2
--- NOTE | 2018-08-05 13:05 | EDPHYS ---
Physician Documentation [facility] Name: Varinder Douglas Age: 38 yrs Sex: Female : 1980 Arrival Date: 08/05/2018 Time: 11:15 Bed 27 Private MD: Tom Gannon R ED Physician David Quintana HPI: 08/05 12:12 This 38 yrs old Black Female presents to ER via Ambulatory with complaints of Chest jr8 Pain. 12:12 The patient or guardian reports chest pain that is located primarily in the anterior jr8 chest wall, left. Onset: acutely, this morning, at 03:00. The pain does not radiate. Associated signs and symptoms: The patient has no apparent associated signs or symptoms. The chest pain is described as a pressure. Duration: The patient or guardian reports a single episode, that is still ongoing. Modifying factors: The symptoms are alleviated by nothing. the symptoms are aggravated by nothing. Severity of pain: At its worst the pain was moderate in the emergency department the pain is unchanged. The patient has not experienced similar symptoms in the past. The patient has not recently seen a physician. 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 - Ebola Screening: : Patient denies travel to an Ebola-affected area in the 21 days before illness onset. - Social history:: Smoking status: unknown. ROS: 12:14 Eyes: Negative for injury, pain, redness, and discharge, ENT: Negative for injury, jr8 pain, and discharge, Neck: Negative for injury, pain, and swelling, Respiratory: Negative for shortness of breath, cough, wheezing, and pleuritic chest pain, Abdomen/GI: Negative for abdominal pain, nausea, vomiting, diarrhea, and constipation, Back: Negative for injury and pain, MS/Extremity: Negative for injury and deformity, Skin: Negative for injury, rash, and discoloration, Neuro: Negative for headache, weakness, numbness, tingling, and seizure. 12:14 Cardiovascular: Positive for chest pain, Negative for edema, orthopnea, palpitations, paroxysmal nocturnal dyspnea. Exam: 12:14 Eyes: Pupils equal round and reactive to light, extra-ocular motions intact. Lids and jr8 lashes normal. Conjunctiva and sclera are non-icteric and not injected. Cornea within normal limits. Periorbital areas with no swelling, redness, or edema. ENT: Nares patent. No nasal discharge, no septal abnormalities noted. Tympanic membranes are normal and external auditory canals are clear. Oropharynx with no redness, swelling, or masses, exudates, or evidence of obstruction, uvula midline. Mucous membranes moist. Neck: Trachea midline, no thyromegaly or masses palpated, and no cervical lymphadenopathy. Supple, full range of motion without nuchal rigidity, or vertebral point tenderness. No Meningismus. Chest/axilla: Normal chest wall appearance and motion. Nontender with no deformity. No lesions are appreciated. Cardiovascular: Regular rate and rhythm with a normal S1 and S2. No gallops, murmurs, or rubs. Normal PMI, no JVD. No pulse deficits. Respiratory: Lungs have equal breath sounds bilaterally, clear to auscultation and percussion. No rales, rhonchi or wheezes noted. No increased work of breathing, no retractions or nasal flaring. Abdomen/GI: Soft, non-tender, with normal bowel sounds. No distension or tympany. No guarding or rebound. No evidence of tenderness throughout. Back: No spinal tenderness. No costovertebral tenderness. Full range of motion. Skin: Warm, dry with normal turgor. Normal color with no rashes, no lesions, and no evidence of cellulitis. MS/ Extremity: Pulses equal, no cyanosis. Neurovascular intact. Full, normal range of motion. Neuro: Awake and alert, GCS 15, oriented to person, place, time, and situation. Cranial nerves II-XII grossly intact. Motor strength 5/5 in all extremities. Sensory grossly intact. Cerebellar exam normal. Normal gait. Vital Signs: 11:19 BP 122 / 82; Pulse 89; Resp 18; Temp 98.0(O); Pulse Ox 100% on R/A; Weight 92.99 kg; hj Height 5 ft. 6 in. (167.64 cm); Pain 7/10; 12:28 BP 108 / 79; Pulse 75; Resp 18; Pulse Ox 100% on R/A; aj1 13:10 BP 105 / 79; Pulse 80; Resp 18; Pulse Ox 100% on R/A; aj1 13:46 BP 116 / 84; Pulse 81; Resp 18; Temp 98; Pulse Ox 100% on R/A; Pain 0/10; mg2 11:19 Body Mass Index 33.09 (92.99 kg, 167.64 cm) MDM: 12:07 Patient medically screened. [facility] 12:55 HEART Score: History: Moderately Suspicious (1), ECG: Normal (0), Age: < or = 45 years [facility] (0), Risk Factors: No Risk Factors Known (0), Troponin: < or = 1 x Normal Limit (0), Total Score =. The patient was given aspirin in the Emergency Department. Data reviewed: vital signs, nurses notes, lab test result(s), EKG, radiologic studies, plain films. Data interpreted: Pulse oximetry: on room air is 100 %. Interpretation: normal. Counseling: I had a detailed discussion with the patient and/or guardian regarding: the historical points, exam findings, and any diagnostic results supporting the discharge/admit diagnosis, lab results, radiology results, the need for outpatient follow up, a social services designee, a family practitioner, to return to the emergency department if symptoms worsen or persist or if there are any questions or concerns that arise at home. 08/05 12:11 Order name: Basic Metabolic Panel [facility] 08/05 12:11 Order name: CBC with Diff; Complete Time: 13:25 [facility] 08/05 12:11 Order name: LFT's; Complete Time: 12:55 [facility] 08/05 12:11 Order name: Magnesium; Complete Time: 12:55 [facility] 08/05 12:11 Order name: NT PRO-BNP; Complete Time: 12:55 [facility] 08/05 12:11 Order name: PT-INR; Complete Time: 12:38 [facility] 08/05 11:16 Order name: EKG - Nurse/Tech; Complete Time: 11:16 08/05 12:11 Order name: Troponin (emerg Dept Use Only); Complete Time: 12:55 [facility] 08/05 12:11 Order name: XRAY Chest (1 view); Complete Time: 12:55 [facility] 08/05 12:11 Order name: EKG; Complete Time: 12:14 [facility] 08/05 12:11 Order name: Cardiac monitoring; Complete Time: 12:13 [facility] 08/05 12:13 Order name: Basic Metabolic Panel; Complete Time: 12:55 [facility] 08/05 13:23 Order name: CBC Smear Scan; Complete Time: 13:25 [facility] 08/05 12:11 Order name: IV Saline Lock; Complete Time: 12:27 [facility] 08/05 12:12 Order name: Labs collected and sent; Complete Time: 12:14 [facility] 08/05 12:12 Order name: O2 Per Protocol; Complete Time: 12:14 [facility] 08/05 12:12 Order name: O2 Sat Monitoring; Complete Time: 12:14 [facility] Administered Medications: 12:15 Drug: Aspirin Chewable Tablet 324 mg Route: PO; aj1 13:10 Follow up: Response: No adverse reaction aj1 Disposition: 14:03 Co-signature as Attending Physician, David Quintana MD Available for consultation at ps1 all times . Disposition: 08/05/18 13:04 Discharged to Home. Impression: Chest pain, unspecified. - Condition is Stable. - Discharge Instructions: Nonspecific Chest Pain, Aspirin and Your Heart. - Medication Reconciliation Form, Thank You Letter, Antibiotic Education, Prescription Opioid Use form. - Follow up: Tom Gannon MD; When: 2 - 3 days; Reason: Recheck today's complaints, Continuance of care, Re-evaluation by your physician. - Problem is new. - Symptoms have improved. Signatures: Dispatcher [employer] [facility] Nery Doyle RN RN aj1 Allen Roca PA PA jr8 Percy Pena RN RN hj David Quintana MD MD ps1 Mazin Desai RN RN mg2 Corrections: (The following items were deleted from the chart) 13:47 13:04 08/05/2018 13:04 Discharged to Home. Impression: Chest pain, unspecified. mg2 Condition is Stable. Forms are Medication Reconciliation Form, Thank You Letter, Antibiotic Education, Prescription Opioid Use. Follow up: Tom Gannon; When: 2 - 3 days; Reason: Recheck today's complaints, Continuance of care, Re-evaluation by your physician. Problem is new. Symptoms have improved. jr8
[2018-08-05 13:21] LABS: Platelet Estimate ADEQ; Urine White Blood Cell Casts OK
[2018-08-05 13:22] LABS: Anisocytosis 2+; Blood Morphology Comment NOTED (NOT SEEN); Polychromasia 1+
--- NOTE | 2018-08-05 19:43 | EKG ---
Test Date: 2018-08-05 Test Time: 11:17:27 Aviation Survival Technician: RAI MEASUREMENT RESULTS: Intervals: Rate: 85 IA: 160 QRSD: 74 QT: 344 QTc: 409 Lacey: P: 60 IA: 160 QRS: 40 T: 43 INTERPRETIVE STATEMENTS: Normal sinus rhythm Normal ECG Compared to ECG 11/02/2011 10:43:42 No significant changes Electronically Signed On 08-05-18 19:40:29 CDT by Franklin Gannon
[2018-08-07 17:19] VITALS: BP 116/84; TEMP 98; O2SAT 100
== END 2018-08-05 13:47 | disposition home or self-care (01) ==
LOC: ER 11:13
DX: R07.9 Chest pain, unspecified (principal); Z88.5 Allergy status to narcotic agent
CPT/HCPCS: 36415; 71045; 80048; 80076; 83735; 83880; 84484; 85025; 85610; 93005; 99285